=== PATIENT | female | born 1940 | race Caucasian/White ===

== ENCOUNTER 2020-05-28 09:56 | Outpatient (CLI) | payer MEDICARE, SELFPAY ==
--- NOTE | ~2020-05-28 | MM_ITS ---
EXAMINATION: MM screening nathalia BI w isac HISTORY: Screening TECHNIQUE: Craniocaudal and mediolateral oblique 3-D tomosynthesis images were obtained and synthetic 2-D images were generated. CAD analysis was submitted and interpreted. COMPARISON: Comparison to multiple prior studies sequentially, with oldest reviewed study dated 03/15. BREAST PARENCHYMAL COMPOSITION: There are scattered areas of fibroglandular density. FINDINGS: There is no evidence of suspicious mass, calcification, or architectural distortion to sugg est malignancy in either breast. There has been no suspicious interval change. IMPRESSION: 1. No mammographic evidence of malignancy. 2. Recommend routine screening mammography in one year. BI-RADS Category 1: Negative Reviewed, dictated and finalized at location A. TRICIAN APPRENTICE
== END 2020-05-28 09:57 | disposition home or self-care (01) ==
LOC: ANHIMG 10:01
PROVIDERS: PCP Family Medicine; Visit Provider Family Medicine
DX: Z12.31 Encounter for screening mammogram for malignant neoplasm of breast (principal)
CPT/HCPCS: 77063; 77067

== ENCOUNTER 2021-06-01 09:21 | Outpatient (CLI) | payer MEDICARE, SELFPAY ==
--- NOTE | ~2021-06-01 | MM_ITS ---
EXAMINATION: MM screening nathalia BI w isac HISTORY: Screening TECHNIQUE: Craniocaudal and mediolateral oblique 3-D tomosynthesis images were obtained and synthetic 2-D images were generated. CAD analysis was submitted and interpreted. COMPARISON: Comparison to multiple prior studies sequentially, with oldest reviewed study dated 03/15. BREAST PARENCHYMAL COMPOSITION: There are scattered areas of fibroglandular density. FINDINGS: There is no evidence of suspicious mass, calcification, or architectural distortion to sugg est malignancy in either breast. There has been no suspicious interval change. IMPRESSION: 1. No mammographic evidence of malignancy. 2. Recommend routine screening mammography in one year. BI-RADS Category 1: Negative Reviewed, dictated and finalized at location A. SPACE PRODUCTS SALES ENGINEER
== END 2021-06-01 09:22 | disposition home or self-care (01) ==
LOC: ANHIMG 09:24
PROVIDERS: PCP Family Medicine; Visit Provider Family Medicine
DX: Z12.31 Encounter for screening mammogram for malignant neoplasm of breast (principal)
CPT/HCPCS: 77063; 77067

== ENCOUNTER 2021-07-06 13:44 | Outpatient (CLI) | payer MEDICARE, SELFPAY ==
--- NOTE | ~2021-07-06 | CT_ITS ---
EXAMINATION: CT abdomen pelvis wo/w con DATE: 07/06/2021 14:55 INDICATION: Hematuria. TECHNIQUE: Computed tomography (CT) of the abdomen and pelvis was performed without and with intraven ous contrast using a total of 130 mL Omnipaque-350 intravenous contrast with a double-bolus technique for simultaneous opacification of the renal parenchyma and renal collecting system. Automated exposu re control and iterative reconstruction technique were employed. The dose-length product was 777.92 m Gy-cm. COMPARISON: None FINDINGS: The visualized portions of the lung bases demonstrate mild atelectasis. No pleural effusion. Cardiome alicja is noted. No pericardial effusion. The liver, spleen, gallbladder, pancreas, adrenal glands, and right kidney are normal. There is a 4 mm cyst in left kidney. There is no urolithiasis. The ureters are well opacified and are normal. There is a urachal remnant in the anterior bladder. Pelvic floor r elaxation is noted. There is diverticulosis of the colon without evidence of diverticulitis. The appe ndix is normal. There are no dilated loops of bowel. There is a small sliding hiatal hernia. There ar e no pathologically enlarged lymph nodes. There is no free intraperitoneal fluid. There is mild thora columbar spondylosis. IMPRESSION: 1. No etiology for hematuria. 2. Pelvic floor relaxation. 3. Small sliding hiatal hernia. Reviewed, dictated and finalized at location A. OLOGY SUPERVISOR
--- NOTE | ~2021-07-06 | XR_ITS ---
EXAMINATION: XR abdomen/kub 1V DATE: 07/06/2021 14:18 INDICATION: Hematuria. TECHNIQUE: A supine view of the abdomen on 2 radiographs was obtained. COMPARISON: CT abdomen and pelvis 07/06/2021 FINDINGS: There are no dilated loops of bowel. There are phleboliths in the pelvis. IMPRESSION: 1. No urolithiasis. Reviewed, dictated and finalized at location A. MATION CONSULTANT IMPRESSION: 1. No urolithiasis.
[2021-07-07 11:10] LABS: Estimated Glomerular Filt Rate > 60
== END 2021-07-06 13:45 | disposition home or self-care (01) ==
PROVIDERS: PCP Family Medicine; Visit Provider Nurse Practitioner Adult Health
DX: R31.9 Hematuria, unspecified (principal); K44.9 Diaphragmatic hernia without obstruction or gangrene
CPT/HCPCS: 74018; 74178; Q9967

== ENCOUNTER 2022-06-05 08:35 | Outpatient (CLI) | payer MEDICARE, SELFPAY ==
--- NOTE | ~2022-06-05 | MM_ITS ---
EXAMINATION: MM screening nathalia BI w isac HISTORY: Screening mammogram TECHNIQUE: Craniocaudal and mediolateral oblique 3-D tomosynthesis images were obtained and synthetic 2-D images were generated. CAD analysis was submitted and interpreted. COMPARISON: 06/02/19942021, 05/28/2020, 04/26/2019 bilateral screening mammogram examinations BREAST PARENCHYMAL COMPOSITION: There are scattered areas of fibroglandular density. FINDINGS: There is no evidence of suspicious mass, calcification, or architectural distortion to sugg est malignancy in either breast. There has been no suspicious interval change. IMPRESSION: 1. No mammographic evidence of malignancy. 2. Recommend routine screening mammography in one year. BI-RADS Category 1: Negative Reviewed, dictated and finalized at location C. LINER
--- NOTE | ~2022-06-05 | DEXA_ITS ---
Bone Density Report Name: JACKIE GARZA Age: 81 Sex: Female Ethnicity: White Date of : 1940 Indication: postmenopausal; screening for osteoporosis; prior fracture; hysterectomy; Referring Provider: PAVEL DIAS Study: Bone densitometry was performed. Exam Date: June 05, 2022 Accession number: [id number] Bone Density: Region BMD T-score Z-score Classification AP Spine(L1-L4) 0.836 -1.9 0.8 Osteopenia Femoral Neck (Left) 0.549 -2.7 -0.4 Osteoporosis Total Hip (Left) 0.695 -2.0 0.1 Osteopenia Femoral Neck (Right) 0.543 -2.8 -0.4 Osteoporosis Total Hip (Right) 0.661 -2.3 -0.2 Osteopenia Total Hip Mean 0.678 -2.2 -0.1 Osteopenia World Health Organization criteria for BMD impression classify patients as: Normal (T-score at or above -1.0), Osteopenia (T-score between -1.0 and -2.5), or Osteoporosis (T-score at or below -2.5). 10-year Fracture Risk: FRAX not reported because: Some T-score for Spine Total or Hip Total or Femoral Neck at or below -2.5 Clinical Information Provided by Patient: Has had a low trauma fracture Has used the following medications: Calcium Has the following medical conditions: Hysterectomy Patient maximum height was 65 Menopause Age: 49 Does not regularly consume dairy products Onset of menses at age 13 Number of children 2 Impression: The patient has established osteoporosis, based on the Right Femoral Neck T-score and the existence of a prior fracture. The patient has risk factors, including: previous fracture. Discussion: HIGH RISK OF FRACTURE. BONE DENSITY IS UNDESIRABLY LOW AT ONE OR MORE SKELETAL SITES, CONSISTENT WITH POSTMENOPAUSAL OSTEOPOROSIS. This patient's lowest T-score, in a patient who has previously fractured, meets the World Health Organization's (WHO) criteria for severe osteoporosis. In untreated patients, the risk of osteoporotic fracture increases approximately two-fold for each 1.0 SD decrease in T-score. Low bone density is not the only risk factor for fracture; also consider factors such as patient's age, frailty or poor health, risk of falling, risk of injury, previous osteoporotic fracture, family history of osteoporosis, cigarette smoking, low body weight, etc. Not everyone with low bone mineral density has osteoporosis; osteomalacia and other metabolic bone disorders should also be considered. Patients who have osteoporosis should be evaluated for specific diseases and conditions (secondary causes) that may cause or contribute to bone loss. The [place] Association of Clinical Endocrinologists (AACE) and National Osteoporosis Foundation (NOF) recommend pharmacologic intervention for all postmenopausal women whose T-score is in this range. The patient should follow a healthful lifestyle (good nutrition with adequate calcium and vitamin D,
== END 2022-06-05 08:36 | disposition home or self-care (01) ==
LOC: ANHIMG 08:41
PROVIDERS: PCP Family Medicine; Visit Provider Nurse Practitioner
DX: Z12.31 Encounter for screening mammogram for malignant neoplasm of breast (principal); M81.0 Age-related osteoporosis without current pathological fracture; M85.88 Other specified disorders of bone density and structure, other site; M85.852 Other specified disorders of bone density and structure, left thigh; M85.851 Other specified disorders of bone density and structure, right thigh
CPT/HCPCS: 77063; 77067; 77080

== ENCOUNTER 2022-07-18 08:09 | Outpatient (CLI) | payer MEDICARE, SELFPAY ==
[2022-07-18 19:25] LABS: Vitamin D 25 Hydroxy 52.8 ng/mL
[2022-07-18 19:53] LABS: Hemoglobin A1C 5.9 % (<5.7)
[2022-07-18 20:30] LABS: Alanine Aminotransferase 17 U/L (6-35); Albumin Level 4.3 g/dL (3.5-5.1); Alkaline Phosphatase 101 U/L (38-126); Anion Gap 3 mmol/L (8-16); Aspartate Amino Transferase 50 U/L (14-36); Blood Urea Nitrogen 12 mg/dL (7-17); Calcium 9.1 mg/dL (8.4-10.2); Carbon Dioxide 32 mmol/L (22-30); Chloride 105 mmol/L (98-107); Cholesterol 178 mg/dL (0-200); Estimated Glomerular Filt Rate > 60; Glucose 83 mg/dL (65-110); HDL Direct 58 mg/dL; Potassium 4.3 mmol/L (3.4-5.0); Sodium 140 mmol/L (137-145); Triglycerides 113 mg/dL (<150)
[2022-07-18 20:44] LABS: LDL Cholesterol Direct 84 mg/dL
== END 2022-07-18 08:10 | disposition home or self-care (01) ==
LOC: ANHGOSHLAB 08:11
PROVIDERS: PCP Family Medicine; Visit Provider Family Medicine
DX: E78.00 Pure hypercholesterolemia, unspecified (principal); R73.03 Prediabetes; F32.9 Major depressive disorder, single episode, unspecified; Z13.21 Encounter for screening for nutritional disorder; E55.9 Vitamin D deficiency, unspecified
CPT/HCPCS: 36415; 80053; 80061; 82306; 83036; 84443

== ENCOUNTER 2022-11-21 09:34 | Outpatient (CLI) | payer MEDICARE, SELFPAY ==
[2022-11-21 14:44] LABS: Kit Draw Collected
== END 2022-11-21 09:35 | disposition home or self-care (01) ==
LOC: ANHGOSHLAB 09:35
PROVIDERS: PCP Family Medicine; Visit Provider Family Medicine
DX: R73.03 Prediabetes (principal); E78.00 Pure hypercholesterolemia, unspecified; I10 Essential (primary) hypertension
CPT/HCPCS: 36415

== ENCOUNTER 2023-01-31 08:06 | Outpatient (CLI) | payer MEDICARE, SELFPAY ==
[2023-01-31 11:43] LABS: Alanine Aminotransferase 15 U/L (6-35); Albumin Level 4.1 g/dL (3.5-5.1); Alkaline Phosphatase 91 U/L (38-126); Anion Gap 1 mmol/L (8-16); Aspartate Amino Transferase 57 U/L (14-36); Blood Urea Nitrogen 21 mg/dL (7-17); Calcium 9.1 mg/dL (8.4-10.2); Carbon Dioxide 34 mmol/L (22-30); Chloride 104 mmol/L (98-107); Cholesterol 164 mg/dL (0-200); Estimated Glomerular Filt Rate > 60; Glucose 104 mg/dL (65-110); HDL Direct 54 mg/dL; Potassium 4.6 mmol/L (3.4-5.0); Sodium 139 mmol/L (137-145); Triglycerides 99 mg/dL (<150)
[2023-01-31 11:53] LABS: LDL Cholesterol Direct 76 mg/dL
[2023-01-31 13:16] LABS: Hemoglobin A1C 5.8 % (<5.7)
== END 2023-01-31 08:07 | disposition home or self-care (01) ==
PROVIDERS: PCP Family Medicine; Visit Provider Family Medicine
DX: R73.03 Prediabetes (principal); E78.00 Pure hypercholesterolemia, unspecified; I10 Essential (primary) hypertension
CPT/HCPCS: 36415; 80053; 80061; 83036

== ENCOUNTER 2023-06-06 09:16 | Outpatient (CLI) | payer MEDICARE, SELFPAY ==
[2023-06-06 15:10] LABS: Alanine Aminotransferase 16 U/L (6-35); Albumin Level 4.3 g/dL (3.5-5.1); Alkaline Phosphatase 94 U/L (38-126); Anion Gap 6 mmol/L (8-16); Aspartate Amino Transferase 52 U/L (14-36); Blood Urea Nitrogen 22 mg/dL (7-17); Calcium 9.3 mg/dL (8.4-10.2); Carbon Dioxide 31 mmol/L (22-30); Chloride 104 mmol/L (98-107); Cholesterol 164 mg/dL (0-200); Estimated Glomerular Filt Rate > 60; Glucose 113 mg/dL (65-110); HDL Direct 57 mg/dL; Potassium 4.3 mmol/L (3.4-5.0); Sodium 141 mmol/L (137-145); Triglycerides 72 mg/dL (<150)
[2023-06-06 15:17] LABS: Vitamin D 25 Hydroxy 65.9 ng/mL
[2023-06-06 15:21] LABS: LDL Cholesterol Direct 81 mg/dL
[2023-06-06 20:55] LABS: Hemoglobin A1C 6.1 % (<5.7)
== END 2023-06-06 09:17 | disposition home or self-care (01) ==
LOC: ANHGOSHLAB 09:19
PROVIDERS: PCP Family Medicine; Visit Provider Family Medicine
DX: R73.03 Prediabetes (principal); E78.00 Pure hypercholesterolemia, unspecified; I10 Essential (primary) hypertension; E55.9 Vitamin D deficiency, unspecified
CPT/HCPCS: 36415; 80053; 80061; 82306; 83036

== ENCOUNTER 2023-06-07 14:49 | Outpatient (CLI) | payer MEDICARE, SELFPAY ==
--- NOTE | ~2023-06-07 | MM_ITS ---
EXAMINATION: MM screening nathalia BI w isac HISTORY: Screening mammogram TECHNIQUE: Craniocaudal and mediolateral oblique 3-D tomosynthesis images were obtained and synthetic 2-D images were generated. CAD analysis was submitted and interpreted. COMPARISON: 06/05/2022, 06/01/2021, 05/28/2020 BREAST PARENCHYMAL COMPOSITION: There are scattered areas of fibroglandular density. FINDINGS: No suspicious mass, calcification, or architectural distortion are identified in either akilah ast to suggest malignancy. There has been no suspicious interval change. IMPRESSION: 1. No mammographic evidence of malignancy. 2. Recommend routine screening mammography while the patient remains in good health. BI-RADS Category 1: Negative Reviewed, dictated and finalized at location A. ITION AIDES TEACHER IMPRESSION: 1. No mammographic evidence of malignancy. 2. Recommend routine screening mammography while the patient remains in good he alth. BI-RADS Category 1: Negative
== END 2023-06-07 14:50 | disposition home or self-care (01) ==
LOC: ANHIMG 14:57
PROVIDERS: PCP Family Medicine; Visit Provider Nurse Practitioner
DX: Z12.31 Encounter for screening mammogram for malignant neoplasm of breast (principal)
CPT/HCPCS: 77063; 77067

== ENCOUNTER 2023-09-19 08:09 | Outpatient (CLI) | payer MEDICARE, SELFPAY ==
[2023-09-19 21:05] LABS: Alanine Aminotransferase 14 U/L (6-35); Albumin Level 4.4 g/dL (3.5-5.1); Alkaline Phosphatase 94 U/L (38-126); Anion Gap 6 mmol/L (4-12); Aspartate Amino Transferase 35 U/L (14-36); Bilirubin,Total 1.1 mg/dL (0.2-1.3); Blood Urea Nitrogen 22 mg/dL (7-17); Calcium 9.6 mg/dL (8.4-10.2); Carbon Dioxide 29 mmol/L (22-30); Chloride 107 mmol/L (98-107); Cholesterol 157 mg/dL (0-200); Estimated Glomerular Filt Rate > 60; Glucose 95 mg/dL (65-110); HDL Direct 55 mg/dL; Sodium 142 mmol/L (137-145); Triglycerides 82 mg/dL (<150)
[2023-09-19 21:16] LABS: LDL Cholesterol Direct 80 mg/dL
[2023-09-19 22:07] LABS: Hemoglobin A1C 5.7 % (<5.7)
== END 2023-09-19 08:10 | disposition home or self-care (01) ==
LOC: ANHGOSHLAB 08:10
PROVIDERS: PCP Family Medicine; Visit Provider Nurse Practitioner
DX: E78.00 Pure hypercholesterolemia, unspecified (principal); R73.03 Prediabetes
CPT/HCPCS: 36415; 80053; 80061; 83036

== ENCOUNTER 2023-10-25 14:45 | Outpatient (CLI) | payer MEDICARE, SELFPAY ==
[2023-10-25 15:45] LABS: Alanine Aminotransferase 14 U/L (6-35); Aspartate Amino Transferase 66 U/L (14-36)
== END 2023-10-25 14:46 | disposition home or self-care (01) ==
LOC: ANHLAB 14:47
PROVIDERS: PCP Family Medicine; Visit Provider Podiatrist Foot & Ankle Surgery
DX: B35.1 Tinea unguium (principal)
CPT/HCPCS: 36415; 84450; 84460

== ENCOUNTER 2024-02-04 08:31 | Outpatient (CLI) | payer MEDICARE, SELFPAY ==
[2024-02-04 14:49] LABS: Hematocrit 43.2 % (37.0-47.0); Hemoglobin 13.3 g/dL (12.0-15.0); Mean Corpuscular HGB Conc 30.8 g/dl (32-36); Mean Corpuscular Hemoglobin 29.6 pg (26-34); Mean Corpuscular Volume 96.2 fl (80-100); Mean Platelet Volume 10.3 fl (7.4-10.4); Platelet Count Result 227 k/mm3 (150-375); Red Blood Count 4.49 M/mm3 (4.2-5.4); Red Cell Distribution Width 13.1 % (11.5-14.5); White Blood Count 5.3 K/mm3 (4.5-10.0)
[2024-02-04 15:07] LABS: Alanine Aminotransferase 12 U/L (6-35); Albumin Level 4.4 g/dL (3.5-5.1); Alkaline Phosphatase 94 U/L (38-126); Anion Gap 8 mmol/L (4-12); Aspartate Amino Transferase 46 U/L (14-36); Bilirubin,Total 0.9 mg/dL (0.2-1.3); Blood Urea Nitrogen 24 mg/dL (7-17); Calcium 9.2 mg/dL (8.4-10.2); Carbon Dioxide 31 mmol/L (22-30); Chloride 99 mmol/L (98-107); Cholesterol 167 mg/dL (0-200); Estimated Glomerular Filt Rate > 60; Glucose 85 mg/dL (65-110); HDL Direct 63 mg/dL; Sodium 138 mmol/L (137-145); Triglycerides 89 mg/dL (<150)
[2024-02-04 15:08] LABS: Alanine Aminotransferase 12 U/L (6-35); Aspartate Amino Transferase 54 U/L (14-36)
[2024-02-04 15:12] LABS: LDL Cholesterol Direct 70 mg/dL
[2024-02-04 15:24] LABS: Hemoglobin A1C 6.2 % (<5.7)
[2024-02-04 15:27] LABS: Thyroid Stimulating Hormone 0.895 uIU/mL (0.465-4.680)
== END 2024-02-04 08:32 | disposition home or self-care (01) ==
PROVIDERS: Podiatrist Foot & Ankle Surgery; PCP Family Medicine; Visit Provider Nurse Practitioner
DX: E55.9 Vitamin D deficiency, unspecified (principal); E78.5 Hyperlipidemia, unspecified; R73.03 Prediabetes
CPT/HCPCS: 36415; 80053; 80061; 82306; 83036; 84443; 84450; 84460; 85027

== ENCOUNTER 2024-07-28 09:40 | Outpatient (CLI) | payer MEDICARE, SELFPAY ==
--- OUTSIDE RECORDS SUMMARY | 2024-07-28 10:46 | XMS_ITS | Encounter Summary ---
Author Organization [facility] Address 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
--- OUTSIDE RECORDS SUMMARY | 2024-07-28 10:46 | XMS_ITS | Encounter Summary ---
Author Organization [facility] Address [address] [place] [address] Care Team Providers Care Bridge Inspector Name Role Phone Unavailable Primary Care Provider Unavailabl e Encounter Details Date Type Department Care Team (Late st Contact Info) Description 10/17/[address] 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
--- OUTSIDE RECORDS SUMMARY | 2024-07-28 10:46 | XMS_ITS | Encounter Summary ---
Author Organization [facility] Address 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
--- OUTSIDE RECORDS SUMMARY | 2024-07-28 10:46 | XMS_ITS | Clinical Summary ---
Author Organization [facility] Address [address] 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
--- OUTSIDE RECORDS SUMMARY | 2024-07-28 10:46 | XMS_ITS | Continuity of Care Document ---
Author Organization [facility] Address [address] [place] [address] [place] [address] Phone Care Team Providers Care Ladle Repairman Name Role Phone German Desai Unavailable Unavailable [...] Diagnoses Date Provider Providers Copied on Encounter [facility], [address] [place] [address] [address], [place], [place], [address], tel:[phone] SEC [facility] No Information 8 Lloyd Porter. [address] , [address], [place], [place], [facility], [place]. tel:[phone] [facility], [address] [place] [address] [address], [place], [place], [address], [place] tel:[phone] SEC [facility] No Information 200 8 Lloyd Porter. [address], [place], [address], [place]. tel:[phone] [facility], [address] [place] [address] [address], [place], [place], [address], [place] tel:[phone] [facility] No Information Jose-1 0-200 8 Doisy Edward. [address], [place], [address], [place]. tel:[phone] Office/outpati ent Visit, Est [facility], [address], [place], [place], [address], [place] tel:[phone] SEC [facility] No Information May-2 2-200 8 Doisy Ed[address]. [address], [place], [address], [place]. tel:[phone] [facility], [address], [place], [place], [address], [place] tel:[phone] SEC [facility] No Information Apr-1 3-200 7 Doisy [address]. [address], [place], [address], [place]. tel:[phone] [facility], [address], [place], [place], [address], [place] tel:[phone] SEC [facility] No Information Mar-3 0-200 7 Doisy [address]. [address], [place], [address], [place]. tel:[phone] [facility], [address], [place], [place], [address], [place] tel:[phone] [facility] No Information Mar-2 9-200 7 Doisy [address]. [address], [place], [address], [place]. tel:[phone] Office Consultation [facility], [address], [place], [place], [address], [place] tel:[phone] SEC [facility] No Information Jul- 3-200 7 Dennysalli Portre. [address] [facility] , [address], [place], [address], [place]. tel:[phone] Family History Family Member Type Diagnosis Age [...]
--- OUTSIDE RECORDS SUMMARY | 2024-07-28 10:46 | XMS_ITS | Encounter Summary ---
Author Organization [facility] Address 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
--- OUTSIDE RECORDS SUMMARY | 2024-07-28 10:46 | XMS_ITS | Referral Summary ---
Author Organization [facility] Address [address] [place] [address] Care Team Providers Care Assembly Line Driver Name Role Phone Watson Bowser MD Unavailable Unavailable Source Comments [facility],non-owned Affiliates and Associated Physician Practices is amultiple site organization consisting of ambulatory clinics and hospital sitesin [place], [place], [place] and [place]. This disclosure is being madepursuant to the Care Everywhere program and may not contain all information available regarding this patient. Last updated 18.[facility] Allergies No known active allergies Medications * Be aware that medications may not be up to date on this document. Alwaysverify current medications with the patient. Medication Sig Dispensed Refills Start Date End Date Status CALCIUM + D PO Take by mouth. Active FIORICET 50-325-40 MG TABS Take 1 Tab by mouth 2 times daily as needed for Headache. Active ferrous sulfate 325 (65 FE) MG tablet Take 325 mg by mouth daily. Active eletriptan (RELPAX) 40 MG tablet Take 1 Tab by mouth once as needed for Migraine for 1 dose. 6 Tab 5 08/24/2010 Active ranitidine (ZANTAC) 300 MG tablet Take 1 Tab by mouth once daily. 90 Tab 2 04/23/2012 Active nadolol (CORGARD) 80 MG tablet TAKE ONE-HALF (1/2) TABLET DAILY 90 Tab 3 09/22/2012 Active predniSONE (DELTASONE) 20 MG tablet 3 for 3 days, then 2 for 3 days, then 1 daily. 18 Tab 0 11/21/2012 Active fluocinonide (LIDEX) 0.05 % cream Apply to affected area 2 times daily. *DO NOT USE ON FACE* 60 g 0 11/21/2012 Active Active Problems Problem Noted Date Diagnosed Date Iron deficiency anemia 04/27/2010 Screen for Colon Cancer rec' d and refused 01/26/2006, 11/23/2008 11/23/2008 Overview (05/03/2010): FOBT neg 04/2010 Essential hypertension 11/23/2008 Overview (02/11/2015): Migraine without aura 07/17/2008 Overview (02/11/2015): Osteoporosis 07/17/2008 BD 05/17/2007 neck -2.6, spine -1.8 07/17/2008 GERD (gastroesophageal reflux disease) 9 Chronic Laryngitis due to reflux 07/17/2008 Abd US 05/17/2007 no AAA 07/17/2008 Blood donor, platelets 07/17/2008 Immunizations Name Administration Dates Next Due INFLUENZA VACCINE 02/22/2012,02/22/2011,02/25/20 10,03/15/2009,04/13/2008 PNEUMOCOCCAL PPSV23 04/13/2007 ZOSTER VACCINE, LIVE 04/13/2007 Social History Tobacco Use Types Packs/Day Years Used Date Smoking Tobacco: Never Smokeless Tobacco: Never Tobacco Cessation:Counseling Given: No Alcohol Use Standard Drinks/Week Comments No 0 (1 standard drink = 0.6 oz pur e alcohol) Sex and Gender Information Value Date Recorded Sex Assigned at Not on file Gender Identity Not on file Sexual Orientation Not on file Last Filed Vital Signs Vital Sign Reading Time Taken Comments Blood Pressure 124/94 09/18/2012 9:09 AM CDT Pulse 72 09/18/2012 9:09 AM CDT Temperature 36.4 C (97.6 F) 11/23/2009 10:18 AM CDT Respiratory Rate 12 09/18/2012 9:09 AM CDT Oxygen Saturation - - Inhaled Oxygen Concentration - - Weight 57.6 kg (127 lb) 09/18/2012 11:10 AM CDT Height 164.5 cm (5' 4.75 ) 09/18/2012 11:10 AM C DT Body Mass Index 21.3 09/18/2012 11:10 AM CDT Plan of Treatment Not on file Procedures Procedure Name Priority Date/Time Associated Diagnosis Comments DEXA BONE DENSITY AXIAL SKELETON Routine 09/18/2012 7:06 PM CDT Osteoporosis from Last 3 Months or Most Recently Relevant to Health Maintenance Results * DEXA BONE DENSITY AXIAL SKELETON (09/18/2012 7:06 PM CDT) Anatomical Region Laterality Modality Other Narrative 09/18/2012 7:06 PM CDT Devendra Upton MD 09/18/2012 7:06 PM [facility] BONE DENSITY REPORT Pt. Name: Malgorzata Mandel Gender: female : 1940 Test Date: 09/18/2012 Referring Physician: Krishan Silva III, MD Technologist: RONY Lockhart A Central DXA was performed today using a [employer] Discovery C counseling aide. The images and data have been scanned. Images are of good technical quality. Areas studied: Spine -2.2; Lt. Hip -1.8; Rt. Hip -1.8; Lt. Fem Nec -2.2; Rt.Fem Nec -2.5; (with site T scores) Official T-score: --> -2.5 Interpretation: Osteoporosis* Comments: Osteoporosis may be diagnosed in postmenopausal women and in men age 50 and older if the T-score of the lumbar spine, total hip or femoral neck is -2.5 or less. In certain circumstances the 33% radius may be utilized. A fragility fracture, regardless of T-score, should be considered diagnostic of osteoporosis (provided other causes of the fracture have been excluded). Recommendations: In general postmenopausal women should have a daily intake of 1000 mg of calcium a day, and 800 IU of Vitamin D a day. A decision about when to add prescription therapy requires clinical correlation and may vary for any given individual patient. Fracture risk approximately doubles for every 1 SD decrease in BMD. The 2008 NOF suggests postmenopausal women and men age 50 and older presenting with the following should be considered for treatment: 1) A hip or vertebral (clinical or morphometric) fracture 2) Other prior fractures and low bone mass (T-score between -1 and -2.5 at the femoral neck, total hip or spine) 3) T-score < -2.5 at the femoral neck, total hip or spine after appropriate evaluation to exclude secondary causes 4) Low bone mass (T-score between -1.0 and -2.5 at the femoral neck, total hip or spine) and secondary causes associated with high risk of fracture (such as glucocorticoid use or total immobilization) 5) Low bone mass (T-score between -1.0 and -2.5 at the femoral neck, total hip or spine) and 10 year probability of hip fracture > 3% or a 10 year probability of any major osteoporosis-related fracture > 20% based on the [place] adapted WHO algorithm (available at www.shef.ac.uk/FRAX) Devendra Upton MD 09/18/2012 7:05 PM Devendra Upton MD Physician and Certified Clinical Training Developer Procedure Note Shirley Biggs - 09/18/2012 11:12 AM CDT [facility] BONE DENSITY REPORT Pt. Name: Malgorzata Mandel Gender: female : 1940 Test Date: 09/18/2012 Referring Physician: Krishan Silva III, MD Technologist: RONY Lockhart A Central DXA was performed today using a [employer] QDR Discovery C counseling aide.The images and data have been scanned. Images are of good technicalquality. Areas studied: Spine -2.2; Lt. Hip -1.8; Rt. Hip-1.8; Lt. Fem Nec -2.2; Rt.Fem Nec -2.5; (with site T scores) Official T-score: --> -2.5 Interpretation: Osteoporosis* Comments: Osteoporosis may be diagnosed in postmenopausal women and in men age 50and older if the T-score of the lumbar spine, total hip or femoral neck is-2.5 or less. In certain circumstances the 33% radius may be utilized. Afragility fracture, regardless of T-score, should be considered diagnosticof osteoporosis (provided other causes of the fracture have beenexcluded). Recommendations: In general postmenopausal women should have a dailyintake of 1000 mg of calcium a day, and 800 IU of Vitamin D a day. Adecision about when to add prescription therapy requires clinicalcorrelation and may vary for any given individual patient. Fracture riskapproximately doubles for every 1 SD decrease in BMD. The 2008 NOFsuggests postmenopausal women and men age 50 and older presenting with thefollowing should be considered for treatment: 1) A hip or vertebral (clinical or morphometric) fracture 2) Other prior fractures and low bone mass (T-score between -1 and -2.5 atthe femoral neck, total hip or spine) 3) T-score < -2.5 at the femoral neck, total hip or spine afterappropriate evaluation to exclude secondary causes 4) Low bone mass (T-score between -1.0 and -2.5 at the femoral neck,total hip or spine) and secondary causes associated with high risk offracture (such as glucocorticoid use or total immobilization) 5) Low bone mass (T-score between -1.0 and -2.5 at the femoral neck, totalhip or spine) and 10 year probability of hip fracture > 3% or a 10 yearprobability of any major osteoporosis-related fracture > 20% based on theU.S. 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
--- OUTSIDE RECORDS SUMMARY | 2024-07-28 10:47 | XMS_ITS | Patient Health Summary ---
Author Organization [facility] Address [address] [place] [address] Care Team Providers Care Probation Worker Name Role Phone Watson Bowser MD Unavailable Unavailable Note from [facility],non-owned Affiliates and Associated Physician Practices is amultiple site organization consisting of ambulatory clinics and hospital sitesin [place], [place], [place] and [place]. This disclosure is being madepursuant to the Care Everywhere program and may not contain all information available regarding this patient. Last updated 18.[facility] Allergies No known active allergies Medications * Be aware that medications may not be up to date on this document. Alwaysverify current medications with the patient. * CALCIUM + D PO Take by mouth. * FIORICET 50-325-40 MG TABS Take 1 Tab by mouth 2 times daily as needed for Headache. * ferrous sulfate 325 (65 FE) MG tablet Take 325 mg by mouth daily. * eletriptan (RELPAX) 40 MG tablet(Started 08/24/2010) Take 1 Tab by mouth once as needed for Migraine for 1 dose. 5 refills left * ranitidine (ZANTAC) 300 MG tablet(Started 04/23/2012) Take 1 Tab by mouth once daily. 2 refills left * nadolol (CORGARD) 80 MG tablet(Started 09/22/2012) TAKE ONE-HALF (1/2) TABLET DAILY 3 refills left * predniSONE (DELTASONE) 20 MG tablet(Started 11/21/2012) 3 for 3 days, then 2 for 3 days, then 1 daily. * fluocinonide (LIDEX) 0.05 % cream(Started 11/21/2012) Apply to affected area 2 times daily. *DO NOT USE ON FACE* Active Problems Problem Noted Date Diagnosed Date Iron deficiency anemia 04/27/2010 Screen for Colon Cancer rec' d and refused 01/26/2006, 11/23/2008 11/23/2008 Essential hypertension 11/23/2008 Migraine without aura 07/17/2008 Osteoporosis 07/17/2008 BD 05/17/2007 neck -2.6, spine -1.8 07/17/2008 GERD (gastroesophageal reflux disease) 9 Chronic Laryngitis due to reflux 07/17/2008 Abd US 05/17/2007 no AAA 07/17/2008 Blood donor, platelets 07/17/2008 Immunizations * INFLUENZA VACCINE(Given 02/22/2012, 02/22/2011, 02/24/2010, 03/15/2009, 04/13/2008) * PNEUMOCOCCAL PPSV23(Given 04/13/2007) * ZOSTER VACCINE, LIVE(Given 04/13/2007) Social History Tobacco Use Types Packs/Day Years [...] Mass Index 21.3 09/18/2012 11:10 AM CDT Procedures * OCCULT BLOOD FECES 1-3 IMMUNO - POINT OF CARE (AMB)(Performed 10/28/2012) Performed for Screen for colon cancer * DEXA BONE DENSITY AXIAL SKELETON(Performed 09/18/2012) Performed for Osteoporosis * ALT(Performed 04/23/2012) Performed for Encounter for long-term (current) use of other medications * BASIC METABOLIC PANEL (CALCIUM TOTAL)(Performed 04/23/2012) Performed for Unspecified essential hypertension * CBC W AUTO DIFFERENTIAL(Performed 04/23/2012) Performed for Iron deficiency anemia * XR ANKLE LEFT 3VW OR MORE(Performed 04/05/2012) * XR FOOT RIGHT 3VW OR MORE(Performed 04/05/2012) * MAMMO BILAT SCREENING(Performed 02/15/2012) * OCCULT BLOOD FECES 1-3 SCREEN POINT OF CARE (AMB)(Performed 10/30/2011) Performed for Screen for colon cancer * BASIC METABOLIC PANEL (CALCIUM TOTAL)(Performed 04/25/2011) Performed for Unspecified essential hypertension * ALT(Performed 04/25/2011) Performed for Encounter for long-term (current) use of other medications * CBC W AUTO DIFFERENTIAL(Performed 04/25/2011) Performed for Anemia, unspecified * MAMMO BILAT SCREENING(Performed 02/13/2011) * OCCULT BLOOD FECES 1-3 SCREEN POINT OF CARE (AMB)(Performed 05/03/2010) Performed for Screen for colon cancer * FERRITIN(Performed 04/26/2010) Performed for Unspecified anemia * IRON + TIBC PANEL(Performed 04/26/2010) Performed for Unspecified anemia * VITAMIN B12 FOLATE PANEL(Performed 04/26/2010) Performed for Unspecified anemia * MAMMO BILAT SCREENING(Performed 02/11/2010) * ALT(Performed 12/17/2009) Performed for Encounter for Long-Term (Current) Use of Other Medications * LIPID PROFILE W LDL/HDL RATIO(Performed 12/17/2009) Performed for Mixed Hyperlipidemia * BASIC METABOLIC PANEL (CALCIUM TOTAL)(Performed 12/17/2009) Performed for Unspecified Essential Hypertension * VITAMIN D 25-HYDROXY(Performed 12/17/2009) Performed for Vitamin D Deficiency * CBC W AUTO DIFFERENTIAL(Performed 12/17/2009) Performed for Unspecified Anemia * ALT(Performed 05/01/2008) * BASIC METABOLIC PANEL (CALCIUM TOTAL)(Performed 05/01/2008) * CBC W AUTO DIFFERENTIAL(Performed 05/01/2008) * US AORTA(Performed 05/17/2007) Results * OCCULT BLOOD FECES 1-3 IMMUNO - POINT OF CARE (AMB) (10/28/2012 12:56 PM CDT) QC Verified Yes Occult Blood Immunoassay 1 negative Negative Occult Blood Immunoassay 2 negative Negative Occult Blood Immunoassay 3 negative Negative STOOL SPECIMEN / Unknown Krishan Silva III, MD LAB - POINT OF CAR E ORDERABLES * DEXA BONE DENSITY AXIAL SKELETON (09/18/2012 7:06 PM CDT) Anatomical Region Laterality Modality Other Narrative 09/18/2012 7:06 PM CDT Devendra Upton MD 09/18/2012 7:06 PM [facility] Medical group BONE DENSITY REPORT Pt. Name: Malgorzata Mandel Gender: female : 1940 Test Date: 09/18/2012 Referring Physician: Krishan Silva III, MD Technologist: RONY Lockhart A Central DXA was performed today using a [employer]its[employer] Discovery C hot plate plywood press operator. The images and data have been scanned. [...] Devendra Upton MD Physician and Certified Clinical Truck Driving Instructor Procedure Note Shirley Biggs - 09/18/2012 11:12 AM CDT [facility] group BONE DENSITY REPORT Pt. Name: Malgorzata Mandel Gender: female : 1940 Test Date: 09/18/2012 Referring Physician: Krishan Silva III, MD Technologist: RONY Lockhart A Central DXA was performed today using a [employer] QDR Discovery C hot plate plywood press operator.The images and data have been scanned. Images [...] Devendra Upton MD Physician and Certified Clinical Truck Driving Instructor Krishan Silva III, MD DEXA ORDERABLES * CBC W AUTO DIFFERENTIAL (04/23/2012 9:50 AM PHYSICAL DAMAGE APPRAISER) Only the most recent of4 resultswithin the time period is included. WBC 5.7 4.0 - 10.5 x10E3/uL [facility] INSURANCE BILL RBC 4.52 3.77 - 5.28 x10E6/uL [facility] INSURANCE BILL Hemoglobin 13.3 11.1 - 15.9 g/dL [facility] INSURANCE BILL Hematocrit 41.7 34.0 - 46.6 % [facility] INSURANCE BILL MCV 92 79 - 97 fL [facility] INSURANCE BILL MCH 29.4 26.6 - 33.0 pg [facility] INSURANCE BILL MCHC 31.9 31.5 - 35.7 g/dL [facility] INSURANCE BILL RDW 13.5 12.3 - 15.4 % [facility] INSURANCE BILL Platelet Count 223 140 - 415 x10E3/uL [facility] INSURANCE BILL Granulocytes % 54 40 - 74 % [facility] INSURANCE BILL Lymphocytes % 37 14 - 46 % [facility] INSURANCE BILL Monocytes % 7 4 - 13 % [facility] INSURANCE BILL Eosinophils % 2 0 - 7 % [facility] INSURANCE BILL Basophils % 0 0 - 3 % [facility] INSURANCE BILL Immature Cells NOT NEEDED [facility] INSURANCE BILL Comment:Ancillary determined the test is not needed Granulocytes Absolute 3.0 1.8 - 7.8 x10E3/uL [facility] INSURANCE BILL Lymphocytes Absolute 2.1 0.7 - 4.5 x10E3/uL [facility] INSURANCE BILL Monocytes Absolute 0.4 0.1 - 1.0 x10E3/uL [facility] INSURANCE BILL Eosinophils Absolute 0.1 0.0 - 0.4 x10E3/uL [facility] INSURANCE BILL Basophils Absolute 0.0 0.0 - 0.2 x10E3/uL [facility] INSURANCE BILL Immature Granulocytes 0 0 - 2 % [facility] INSURANCE BILL Immature Granulocytes Absolute 0.0 0.0 - 0.1 x10E3/uL [facility] INSURANCE BILL nRBC NOT NEEDED [facility] INSURANCE BILL Comment:Ancillary determined the test is not needed Comment Hematology NOT NEEDED [facility] INSURANCE BILL Comment:Ancillary determined the test is not needed Blood specimen (specimen) BLOOD SPECIMEN / Unknown 04/23/2012 9:50 AM PHYSICAL DAMAGE APPRAISER 04/23/2012 10:00 PM PHYSICAL DAMAGE APPRAISER Narrative Resulting Agency Comment [facility] [address] [phone] Krishan Silva III, MD LAB - HEMATOLOGY O RDERABLES [facility] INSURANCE BILL * BASIC METABOLIC PANEL (CALCIUM TOTAL) (04/23/2012 9:50 AM PHYSICAL DAMAGE APPRAISER) Only the most recent of4 resultswithin the time period is included. Glucose 94 65 - 99 mg/dL [facility] INSURANCE BILL BUN 13 8 - 27 mg/dL [facility] INSURANCE BILL Creatinine 0.61 0.57 - 1.00 mg/dL [facility] INSURANCE BILL eGFR by MDRD 92 >59 mL/min/1.7 3 [facility] INSURANCE BILL eGFR by MDRD 106 >59 mL/min/1.7 3 [facility] INSURANCE BILL BUN/Creatinine Ratio 21 - [facility] INSURANCE BILL Sodium 141 134 - 144 mmol/L [facility] INSURANCE BILL Potassium 4.3 3.5 - 5.2 mmol/L [facility] INSURANCE BILL Chloride 104 97 - 108 mmol/L [facility] INSURANCE BILL CO2 25 20 - 32 mmol/L [facility] INSURANCE BILL Calcium 9.2 8.6 - 10.2 mg/dL [facility] INSURANCE BILL Blood specimen (specimen) BLOOD SPECIMEN / Unknown 04/23/2012 9:50 AM PHYSICAL DAMAGE APPRAISER 04/23/2012 10:00 PM PHYSICAL DAMAGE APPRAISER Narrative Resulting Agency Comment [facility] [address] [phone] Krishan Silva III, MD LAB - CHEMISTRY OR DERABLES Performing Organization Address City/[facility] Co de Phone Number [facility] INSURANCE BILL * ALT (04/23/2012 9:50 AM PHYSICAL DAMAGE APPRAISER) Only the most recent of4 resultswithin the time period is included. ALT 8 0 - 32 IU/L [facility] INSURANCE BILL Blood specimen (specimen) BLOOD SPECIMEN / Unknown 04/23/2012 9:50 AM PHYSICAL DAMAGE APPRAISER 04/23/2012 10:00 PM PHYSICAL DAMAGE APPRAISER Narrative Resulting Agency Comment [facility] [address] [phone] Krishan Silva III, MD LAB - CHEMISTRY OR DERABLES Performing Organization Address [facility] de Phone Number [facility] INSURANCE BILL * XR FOOT 3+ VW RIGHT (04/05/2012) Anatomical Region Laterality Modality Ankle / Foot Other Krishan Silva III, MD DIAGNOSTIC IMAGING ORDERABLES * XR ANKLE 3+ VW LEFT (04/05/2012) Anatomical Region Laterality Modality Lower Extremity Other Krishan Silva III, MD DIAGNOSTIC IMAGING ORDERABLES * MAMMO SCREENING DIGITAL IMAGE BILAT (02/15/2012) Only the most recent of3 resultswithin the time period is included. Anatomical Region Laterality Modality Breast Bilateral Other Krishan Silva III, MD MAMMO ORDERABLES * OCCULT BLOOD FECES 1-3 SCREEN POINT OF CARE (AMB) (10/30/2011 1:55 PM CDT) Only the most recent of2 resultswithin the time period is included. Occult Blood 1 negative Negative Occult Blood 2 negative Negative Occult Blood 3 negative Negative Card Lot Number Card Exp Date Yes Developer Lot Number Developer Expiration Date Yes QC Negative Negative QC Positive STOOL SPECIMEN / Unknown 10/30/2011 1:55 PM CDT Krishan Silva III, MD LAB - POINT OF CAR E ORDERABLES * IRON + TIBC PANEL (04/26/2010 3:49 PM PHYSICAL DAMAGE APPRAISER) TIBC 392 250 - 450 ug/dL [facility] INSURANCE BILL UIBC 329 150 - 375 ug/dL [facility] INSURANCE BILL Iron 63 35 - 155 ug/dL [facility] INSURANCE BILL Iron Saturation 16 15 - 55 % [facility] INSURANCE BILL BLOOD SPECIMEN / Unknown 04/26/2010 3:49 PM PHYSICAL DAMAGE APPRAISER 04/26/2010 9:57 PM PHYSICAL DAMAGE APPRAISER Narrative Resulting Agency Comment [facility] [address] [place] [phone] Krishan Silva III, MD LAB - CHEMISTRY OR DERABLES [facility] INSURANCE BILL * VITAMIN B12 FOLATE PANEL (04/26/2010 3:49 PM PHYSICAL DAMAGE APPRAISER) Vitamin B12 515 211 - 946 pg/mL [facility] INSURANCE BILL Folate 18.9 >3.0 ng/mL [facility] INSURANCE BILL Comment: Indeterminate: 2.2 - 3.0 Deficient: <2.2 BLOOD SPECIMEN / Unknown 04/26/2010 3:49 PM PHYSICAL DAMAGE APPRAISER 04/26/2010 9:57 PM PHYSICAL DAMAGE APPRAISER Narrative Resulting Agency Comment [facility] [address] [phone] Krishan Silva III, MD LAB - CHEMISTRY OR DERABLES [facility] INSURANCE BILL * (ABNORMAL) FERRITIN (04/26/2010 3:49 PM PHYSICAL DAMAGE APPRAISER) Ferritin 11(L) 13 - 150 ng/mL [facility] INSURANCE BILL BLOOD SPECIMEN / Unknown 04/26/2010 3:49 PM PHYSICAL DAMAGE APPRAISER 04/26/2010 9:57 PM PHYSICAL DAMAGE APPRAISER Narrative Resulting Agency Comment [facility] [address] [phone] Krishan Silva III, MD LAB - CHEMISTRY OR DERABLES Performing Organization Address [facility] Co de Phone Number [facility] INSURANCE BILL * (ABNORMAL) LIPID PROFILE W LDL/HDL (PO REF LAB) (12/17/2009 11:47 AM CDT) Cholesterol 246(H) 100 - 199 mg/dL [facility] INSURANCE BILL Triglycerides 111 0 - 149 mg/dL [facility] INSURANCE BILL HDL Cholesterol 63 >39 mg/dL [facility] INSURANCE BILL Comment: According to ATP-III Guidelines, HDL-C >59 mg/dL is considered a negative risk factor for CHD. VLDL Calculated 22 5 - 40 mg/dL [facility] INSURANCE BILL LDL Calculated 161(H) 0 - 99 mg/dL [facility] INSURANCE BILL LDL/HDL Ratio 2.6 0.0 - 3.2 ratio units [facility] INSURANCE BILL BLOOD SPECIMEN / Unknown 12/17/2009 11:47 AM CDT 12/17/2009 8:14 PM CDT Narrative Resulting Agency Comment [facility] [address] [phone] Krishan Silva III, MD LAB - CHEMISTRY OR DERABLES Performing Organization Address [facility] de Phone Number [facility] INSURANCE BILL * VITAMIN D 25-HYDROXY (12/17/2009 11:47 AM CDT) Vitamin D, 25 Hydroxy 35.2 32.0 - 100.0 ng/mL [facility] INSURANCE BILL Comment: Recent studies consider the lower limit of 32.0 ng/mL to be a threshold for optimal health. Neftaly BW. J Nutr. 2005 Jun;135(2):317-22. BLOOD SPECIMEN / Unknown 12/17/2009 11:47 AM CDT 12/17/2009 8:14 PM CDT Narrative Resulting Agency Comment [facility] [address] [phone] Krishan Silva III, MD LAB - CHEMISTRY OR DERABLES [facility] INSURANCE BILL * US AORTA (05/17/2007) Anatomical Region Laterality Modality Other Krishan Silva III, MD ORDERABLES Care Teams Probation Worker Relationship Specialty Start Date End Date Watson Bowser MD 12/18/09
--- OUTSIDE RECORDS SUMMARY | 2024-07-28 10:47 | XMS_ITS | Clinical Summary ---
Author Organization [facility] Address [address] [place] [address] Care Team Providers Care Piano Mechanic Name Role Phone Watson Bowser MD Unavailable Unavailable Source Comments [facility],non-owned Affiliates and Associated Physician Practices is amultiple site organization consisting of ambulatory clinics and hospital sitesin [place], [place], [place] and [place]. This disclosure is being madepursuant to the Care Everywhere program and may not contain all information available regarding this patient. Last updated 18.[facility] [employer] Allergies No known active allergies Medications * [...] 09/18/2012 11:10 AM CDT Plan of Treatment Health Maintenance Due Date Last Done Comments MEDICARE AWV 12 MONTHS 1940 DTAP/TDAP/TD VACCINES (1 - Tdap) 1960 ZOSTER VACCINE (2 of 3) 06/08/2007 04/13/2007 PNEUMOCOCCAL VACCINE 50+ (2 of 2 - PCV) 04/13/2008 04/13/2007 Respiratory Syncytial Virus (RSV) Vaccine Pt: or over 60 yrs (1 - 1-dose 75+ series) 2016 COVID-19 VACCINE (1 - season) 2024 INFLUENZA VACCINE (#1) 2024 2, 02/22/2011, 02/24/2010, Additional history exists DEPRESSION SCREENING 05/14/2024 BONE DENSITY TESTING Completed 09/18/2012, 05/17/19 08 HEPATITIS B VACCINE Aged Out No longe r eligible based on patient's age to complete this topic HIB VACCINE Aged Out No longer eligi ble based on patient's age to complete this topic HPV VACCINE Aged Out No longer eligi ble based on patient's age to complete this topic MENINGOCOCCAL (Group B) VACCINE SHARED DECISION-MAKING Aged Out No longer eligible based on patient's age to complete this topic MENINGOCOCCAL GROUPS A/C/Y/W VACCINE Aged Out No longer eligible based on patient's age to complete this topic Procedures Procedure Name Priority Date/Time Associated Diagnosis Comments DEXA BONE DENSITY AXIAL SKELETON Routine 09/18/2012 7:06 PM CDT Osteoporosis from Last 3 Months or Most Recently Relevant to Health Maintenance Results * DEXA BONE DENSITY AXIAL SKELETON (09/18/2012 7:06 PM CDT) Anatomical Region Laterality Modality Other Narrative 09/18/2012 7:06 PM CDT Devendra Upton MD 09/18/2012 7:06 PM [facility] BONE DENSITY REPORT Pt. Name: Malgorzata Mandel Gender: female : 1940 Test Date: 09/18/2012 Referring Physician: Krishan Silva III, MD Technologist: RONY Lockhart A Central DXA was performed today using a [employer] QDR Discovery C director of research and development. The images and data have been scanned. [...] Devendra Upton MD Physician and Certified Clinical Fuel Manager Procedure Note Shirley Biggs - 09/18/2012 11:12 AM CDT [facility] BONE DENSITY REPORT Pt. Name: Malgorzata Mandel Gender: female : 1940 Test Date: 09/18/2012 Referring Physician: Krishan Silva III, MD Technologist: RONY Lockhart A Central DXA was performed today using a Hologic QDR Discovery C director of research and development.The images and data have been scanned. 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
[2024-07-28 13:59] LABS: Hematocrit 44.2 % (37.0-47.0); Mean Corpuscular HGB Conc 31.7 g/dl (32-36); Mean Corpuscular Hemoglobin 30.2 pg (26-34); Mean Corpuscular Volume 95.3 fl (80-100); Mean Platelet Volume 9.9 fl (7.4-10.4); Platelet Count Result 260 k/mm3 (150-375); Red Blood Count 4.64 M/mm3 (4.2-5.4); Red Cell Distribution Width 12.8 % (11.5-14.5)
[2024-07-28 16:10] LABS: Alanine Aminotransferase 16 U/L (6-35); Albumin Level 4.4 g/dL (3.5-5.1); Alkaline Phosphatase 121 U/L (38-126); Anion Gap 7 mmol/L (4-12); Aspartate Amino Transferase 32 U/L (14-36); Bilirubin,Total 0.9 mg/dL (0.2-1.3); Blood Urea Nitrogen 14 mg/dL (7-17); Calcium 9.5 mg/dL (8.4-10.2); Carbon Dioxide 32 mmol/L (22-30); Chloride 101 mmol/L (98-107); Cholesterol 181 mg/dL (0-200); Estimated Glomerular Filt Rate > 60; Glucose 110 mg/dL (65-110); HDL Direct 67 mg/dL; Potassium 4.1 mmol/L (3.4-5.0); Sodium 140 mmol/L (137-145); Triglycerides 109 mg/dL (<150)
[2024-07-28 16:21] LABS: LDL Cholesterol Direct 79 mg/dL
[2024-07-28 20:25] LABS: Hemoglobin A1C 5.9 % (<5.7)
== END 2024-07-28 09:41 | disposition home or self-care (01) ==
LOC: ANHGOSHLAB 09:41
PROVIDERS: PCP Family Medicine; Visit Provider Family Medicine
DX: F32.9 Major depressive disorder, single episode, unspecified (principal); Z79.899 Other long term (current) drug therapy; I10 Essential (primary) hypertension; E78.00 Pure hypercholesterolemia, unspecified; R73.03 Prediabetes
CPT/HCPCS: 36415; 80053; 80061; 83036; 84443; 85027

== ENCOUNTER 2024-08-22 08:26 | Outpatient (CLI) | payer MEDICARE, SELFPAY ==
--- NOTE | ~2024-08-22 | MM_ITS ---
EXAMINATION: MM screening nathalia BI w isac HISTORY: Screening TECHNIQUE: Craniocaudal and mediolateral oblique 3-D tomosynthesis images were obtained and synthetic 2-D images were generated. CAD analysis was submitted and interpreted. COMPARISON: Comparison to multiple prior studies sequentially, with oldest reviewed study dated 04/13. BREAST PARENCHYMAL COMPOSITION: Not dense: There are scattered areas of fibroglandular density. FINDINGS: There is no evidence of suspicious mass, calcification, or architectural distortion to sugg est malignancy in either breast. There has been no suspicious interval change. IMPRESSION: 1. No mammographic evidence of malignancy. 2. Recommend routine screening mammography in one year. BI-RADS Category 1: Negative Reviewed, dictated and finalized at location A.
--- OUTSIDE RECORDS SUMMARY | 2024-08-22 08:34 | XMS_ITS | Encounter Summary ---
Author Organization [facility] Address [address] [place] [address] Care Team Providers Care Invisible Braces Orthodontist Name Role Phone Unavailable Primary Care Provider Unavailabl e Encounter Details Date Type Department Care Team (Late st Contact Info) Description 12/30/1999 Outpatient Historical [facility] [address] [place] [address] Kamron Villeda ([employer]) Social History Tobacco Use Types Packs/Day Years Used Date Smoking Tobacco: Never Assessed Comments Unknown Sex and Gender Information Value Date Recorded Sex Assigned at Not on file Legal Sex Female 3:53 AM AD TAKER Gender Identity Not on file Sexual Orientation Not on file documented as of this encounter Plan of Treatment Not on file documented as of this encounter Visit Diagnoses Not on filedocumented in this encounter
--- OUTSIDE RECORDS SUMMARY | 2024-08-22 08:34 | XMS_ITS | Clinical Summary ---
Author Organization [facility] Address [address] Gordonn: Epic Prelude ADT [place] [address] Care Team Providers Care Clockmaker Apprentice Name Role Phone Unavailable Primary Care Provider Unavailabl e Social History Tobacco Use Types Packs/Day Years Used Date Smoking Tobacco: Never Assessed Comments Unknown Sex and Gender Information Value Date Recorded Sex Assigned at Not on file Legal Sex Female 3:53 AM TRAVEL JOURNALIST Gender Identity Not on file Sexual Orientation [...]
--- OUTSIDE RECORDS SUMMARY | 2024-08-22 08:34 | XMS_ITS | Continuity of Care Document ---
Author Organization [facility] Address [address] [place] [address] [place] [address] Phone Care Team Providers Care Back Tender Cylinder Name Role Phone German Desai Unavailable Unavailable [...] Diagnoses Date Provider Providers Copied on Encounter [facility], [address] [place] [address] [address], [place], [place], [id number], tel:[phone] [facility] No Information 8 Lloyd Porter. [address] , [address], [place], [place], [facility], [place]. tel:[phone] [facility], [address] [place] [address] [address], [place], [place], [id number], [place] tel:[phone] [facility] No Information 200 8 Lloyd Porter. [address] , [address], [place], [address], [place]. tel:[phone] [facility], [address] [place] [address] [address], [place], [place], [id number], [place] tel:[phone] [facility] No Information Jose-1 0-200 8 Doisy Edward. [address] , [address], [place], [address], [place]. tel:[phone] Office/outpati ent Visit, Est [facility], [address], [place], [place], [id number], [place] tel:[phone] [facility] No Information May-2 2-200 8 Doisy Edjudah. [address] , [address], [place], [address], [place]. tel:[phone] [facility], [address], [place], [place], [id number], [place] tel:[phone] [facility] No Information Apr-1 3-200 7 Doisy Edjudah. [address] , [address], [place], [address], [place]. tel:[phone] [facility], [address], [place], [place], [id number], [place] tel:[phone] [facility] No Information Mar-3 0-200 7 Doisy Edjudah. [address] , [address], [place], [address], [place]. tel:[phone] [facility], [address], [place], [place], [id number], [place] tel:[phone] [facility] No Information Mar-2 9-200 7 Doisy Edjudah. [address] , [address], [place], [address], [place]. tel:[phone] Office Consultation [facility], [address], [place], [place], [id number], [place] tel:[phone] [facility] No Information Jul- 3-200 7 Dennysalli Porter. [address] , [address], [place], [address], [place]. tel:[phone] Family History Family Member Type Diagnosis Age At Onset No Information Payers Payer name Insurance type Covered constitution party ID Authoriza tion(s) No Information Social History [...]
--- OUTSIDE RECORDS SUMMARY | 2024-08-22 08:34 | XMS_ITS | Encounter Summary ---
Author Organization [facility] Address [address] [place] [address] Care Team Providers Care Wind Turbine Installer Name Role Phone Unavailable Primary Care Provider Unavailabl e Encounter Details Date Type Department Care Team (Late st Contact Info) Description 10/17/2002 Outpatient Historical [facility] [address] [place] [address] Kamron Villeda (Lessons Only) Social History Tobacco Use Types Packs/Day Years Used Date Smoking Tobacco: Never Assessed Comments Unknown Sex and Gender Information Value Date Recorded Sex Assigned at Not on file Legal Sex Female 3:53 AM REFLEXOLOGIST Gender Identity Not on file Sexual Orientation Not on file documented as of this encounter Plan of Treatment Not on file documented as of this encounter Visit Diagnoses Not on filedocumented in this encounter
--- OUTSIDE RECORDS SUMMARY | 2024-08-22 08:34 | XMS_ITS | Encounter Summary ---
Author Organization [facility] Address 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
--- OUTSIDE RECORDS SUMMARY | 2024-08-22 08:34 | XMS_ITS | Encounter Summary ---
Author Organization [facility] Address [address] [place] [address] Care Team Providers Care Train Caller Name Role Phone Unavailable Primary Care Provider Unavailabl e Encounter Details Date Type Department Care Team (Late st Contact Info) Description 11/17/2004 Outpatient Historical [facility] [address] [place] [address] Kamron Villeda ([employer]) Social History Tobacco Use Types Packs/Day Years Used Date Smoking Tobacco: Never Assessed Comments Unknown Sex and Gender Information Value Date Recorded Sex Assigned at Not on file Legal Sex Female 3:53 AM CAR KNOCKER Gender Identity Not on file Sexual Orientation Not on file documented as of this encounter Plan of Treatment Not on file documented as of this encounter Visit Diagnoses Not on filedocumented in this encounter
--- OUTSIDE RECORDS SUMMARY | 2024-08-22 08:34 | XMS_ITS | Clinical Summary ---
Author Organization [facility] Address [address] [place] [address] Care Team Providers Care Educational Psychologist Name Role Phone Watson Bowser MD Unavailable Unavailable Source Comments [facility],non-owned Affiliates and Associated Physician Practices is amultiple site organization consisting of ambulatory clinics and hospital sitesin [place], [place], [place] and [place]. This disclosure is being madepursuant to the Care Everywhere program and may not contain all information available regarding this patient. Last updated 18.[facility] [employer] Allergies No known active allergies Medications * [...] 2016 COVID-19 VACCINE (1 - season) 2024 DEPRESSION SCREENING 05/14/2024 INFLUENZA VACCINE (Season Ended) 2025 02/22/2012, 02/22/2011, 02/24/2010, Additional history exists BONE DENSITY TESTING Completed 09/18/2012, 05/17/19 08 [...] CDT Devendra Upton MD 09/18/2012 7:06 PM [facility] Medical group BONE DENSITY REPORT Pt. Name: Malgorzata Mandel Gender: female : 1940 Test Date: 09/18/2012 Referring Physician: Krishan Silva III, MD Technologist: RONY Lockhart A Central DXA was performed today using a [employer] QDR Discovery C clinic receptionist. The images and data have been scanned. [...] Devendra Upton MD Physician and Certified Clinical Public Improvement Inspector Procedure Note Shirley Biggs - 09/18/2012 11:12 AM CDT [facility] Medical group BONE DENSITY REPORT Pt. Name: Malgorzata Mandel Gender: female : 1940 Test Date: 09/18/2012 Referring Physician: Krishan Silva III, MD Technologist: RONY Lockhart A Central DXA was performed today using a Hologic QDR Discovery C clinic receptionist.The images and data have been scanned. Images [...] Devendra Upton MD Physician and Certified Clinical Public Improvement Inspector Krishan Silva III, MD DEXA ORDERABLES from Last 3 Months or Most Recently Relevant to Health Maintenance Advance Directives Documents on File Type Date Recorded Patient Trademark Attorney Expl anation Adv Directive/Living Will/POA 07/06/2008 Care Teams Educational Psychologist Relationship Specialty Start Date End Date Watson Bowser MD 12/18/09
== END 2024-08-22 08:27 | disposition home or self-care (01) ==
PROVIDERS: PCP Family Medicine; Visit Provider Family Medicine
DX: Z12.31 Encounter for screening mammogram for malignant neoplasm of breast (principal)
CPT/HCPCS: 77063; 77067

== ENCOUNTER 2024-09-10 09:44 | Emergency (ER) | payer MEDICARE, SELFPAY ==
[2024-09-10 09:52] VITALS: BP 134/71; PULSE 70; RESP 16; TEMP 36.6; O2SAT 100
--- NOTE | 2024-09-10 09:57 | ED_ITS ---
HPI - Nausea/Vomiting/Diarrhea General Chief complaint: Nausea/Vomiting/Diarrhea Stated complaint: VOMITING/DIARRHEA Time Seen by Provider: 09/10/24 09:57 Source: patient and RN notes reviewed Mode of arrival: ambulatory Limitations: no limitations History of Present Illness HPI Narrative: 83-year-old female presents Express Care complaining of nausea, vomiting, diarrhea. Patient says symptoms started 5 days ago. She initially started with nausea and vomiting and then developed diarrhea. She has not vomited in 5 days since her symptoms started. However patient continues to have watery diarrhea. She says she has diarrhea at least 4 to 5 times a day. She says her appetite is decreased. She has been able to eat chicken noodle soup multiple times a day. She says she is able to keep fluids down. Patient denies any mucus or blood in her stools. Denies any abdominal pain or fevers. Patient denies any sick contacts. She did have family over for Easter 5 days ago and she says she was only one that got sick. Related Data Allergies Allergy/AdvReac Type Severity Reaction Status Date / Time No Known Allergies Allergy Mild Verified 09/10/24 10:00 Review of Systems Review of Systems: CONSTITUTIONAL: Denies fever, chills, or sweats. EYES: Denies visual changes, redness, or discharge. ENT: Denies rhinorrhea, congestion, sore throat, or otalgia. CARDIOVASCULAR: Denies chest pain, palpitations, or edema. RESPIRATORY: Denies cough or dyspnea. GASTROINTESTINAL: Denies abdominal pain, blood in stool, mucous stool. Positive for nausea, vomiting, or diarrhea. GENITOURINARY: Denies dysuria or hematuria. SKIN: Denies rash or itching. MUSCULOSKELETAL: Denies back pain, joint pain, or myalgia. NEUROLOGIC: Denies headache, numbness, or weakness. PSYCHIATRIC: Denies anxiety or depression. All other systems reviewed are negative, except as documented in HPI. [facility] Past Medical History Medical History Rotator cuff tear (~1982) Age-related osteoporosis without current pathological fracture Essential (primary) hypertension Gastro-esophageal reflux disease without esophagitis Prediabetes Pure hypercholesterolemia, unspecified Surgical History Surgical History Hx of hysterectomy Family History Family History Mother Diabetes mellitus Hypertension Family history of cardiovascular disease Other Family history of aortic aneurysm Family history of elevated blood lipids Social History Social History Social History: Caffeine-coffee Smoking status: Never smoker Alcohol intake: never Substance use: never Substance use type: does not use Lack of Transportation: No Lack of Food: Never True Current Housing: I Have Housing Concerned About Future Housing: No Difficulty Paying Gas/Electric Bills: No Difficulty Paying for Meds: No Currently Unemployed: No Education: High School Diploma/GED Difficulty w/ Childcare or Family Care: YES Living arrangements: alone Occupation/Education: retired Gender identity (if verbalized by the patient): Female Sexual Orientation (if Verbalized by the Patient): Straight or Heterosexual Agree to blood products: Yes Comments At the time of my signature, I reviewed and agree with the nursing past medical, surgical, social, and family history. There is no relevant family history pertinent to the patient complaint. Exam Narrative: GENERAL: This is a well-nourished, well-developed adult, in no apparent distress. They are non ill-appearing, nontoxic appearing. HEAD: normocephalic, atraumatic. EYES: Sclera clear/white. Conjunctiva normal. Vision is grossly intact. Extraocular movements intact EARS: External ears normal Hearing grossly intact. NOSE: External nose normal THROAT: Mucous membranes moist NECK: Normal range of motion CARDIOVASCULAR: Regular rate and rhythm without murmurs, gallops, or rubs. RESPIRATORY: Clear to auscultation. Breath sounds equal bilaterally. No wheezes, rales, or rhonchi. GASTROINTESTINAL: Abdomen soft, non-tender, nondistended. Bowel sounds are active. No hepato-splenomegaly, or palpable masses. No guarding. SKIN: warm, Dry, intact with no suspicious lesions or rash, good texture and t urgor. NEURO: awake, alert, and oriented to person, place and time. There were no obvious focal neurologic abnormalities. EXTREMITIES: No joint tenderness, effusion, or edema noted. Course Course Emergency Course: Portions of this record may have been created with voice recognition software Level of Care: Express Care Visit Vital Signs Vital signs: Vital Signs Temperature 98 F 09/10/24 09:52 Pulse Rate 70 09/10/24 09:52 Respiratory Rate 16 09/10/24 09:52 Blood Pressure 134/71 09/10/24 09:52 Pulse Oximetry 100 09/10/24 09:52 Oxygen Delivery Room Air 09/10/24 09:52 Temperature 98 F 09/10/24 09:52 Pulse Rate 70 09/10/24 09:52 Respiratory Rate 16 09/10/24 09:52 Blood Pressure 134/71 09/10/24 09:52 Pulse Oximetry 100 09/10/24 09:52 Oxygen Delivery Room Air 09/10/24 09:52 Reviewed MDM - Nausea/Vomiting/Diarrhea MDM Narrative Medical decision making narrative: Symptoms are likely consistent with a viral gastroenteritis. Patient states only having brown watery stools. Patient has no inflammatory signs of diarrhea or abdominal pain. Patient does not appear clinically dehydrated. Mucous membranes are moist. Discussed physical exam findings. Advised supportive me asures and signs/symptoms to go to the ER. Pt is appropriate for outpt treatment and f/u. Differential Diagnosis Differential diagnosis: Likely food poisoning, gastroenteritis and dehydration Critical Care Time Critical Care Time Critical Care Time: No Discharge Plan Discharge Clinical Impression: Diarrhea Qualifiers: Diarrhea type: unspecified type Qualified Code(s): R19.7 - Diarrhea, unspecified Patient Disposition: Home Condition: Stable Instructions: Acute Diarrhea (ED) Additional Instructions: You may take Pepto-Bismol as needed for your diarrhea. You may take Imodium for uncontrollable diarrhea if the Pepto-Bismol is not working. Is likely a viral illness and will have to run its course. You may take Zofran as directed for nausea and vomiting. Please drink plenty of fluids including water and sports drinks that have electrolytes in them. You may eat more boiled starches, cereal s, potatoes, noodles, rice, we wheats, oats, crackers, bananas, soups, or portal vegetables to help with your watery diarrhea. Please follow-up with your primary care provider in 3 days. If you develop abdominal pain, fevers, bloody stools, mucous stools, uncontrollable nausea and vomiting, dehydration, or any other concerns please go to the ER immediately. Patient Language: South Sudanese Prescriptions: New ondansetron 4 mg tablet,disintegrating 4 mg PO Q8H PRN (Reason: nausea and vomiting) Qty: 10 0RF No Action alendronate 70 mg tablet 70 mg PO WEEKLY Qty: 12 1RF atorvastatin 10 mg tablet 10 mg PO DAILY Qty: 90 1RF nadolol 40 mg tablet 40 mg PO DAILY Qty: 90 1RF Follow-up/Referrals: America Garcia DO [Primary Care Provider] - Time of Disposition: 10:13
== END 2024-09-10 10:25 | disposition home or self-care (01) ==
PROVIDERS: PCP Family Medicine
DX: R19.7 Diarrhea, unspecified (principal); I10 Essential (primary) hypertension; K21.9 Gastro-esophageal reflux disease without esophagitis; E78.00 Pure hypercholesterolemia, unspecified; R73.03 Prediabetes; M81.0 Age-related osteoporosis without current pathological fracture
CPT/HCPCS: 99213; G0463

== ENCOUNTER 2024-12-16 08:15 | Outpatient (CLI) | payer MEDICARE, SELFPAY ==
--- OUTSIDE RECORDS SUMMARY | 2024-12-16 08:19 | XMS_ITS | Encounter Summary ---
Author Organization [facility] Address [address] [place] [address] Care Team Providers Care Mill Recorder Name Role Phone Unavailable Primary Care Provider Unavailabl e Encounter Details Date Type Department Care Team (Late st Contact Info) Description 11/17/2004 Outpatient Historical [facility] [address] [place] [address] Kamron Villeda ([employer]) Social History Tobacco Use Types Packs/Day Years Used Date Smoking Tobacco: Never Assessed Comments Unknown Sex and Gender Information Value Date Recorded Sex Assigned at Not on file Legal Sex Female 3:53 AM WET POUR SUPERVISOR Gender Identity Not on file Sexual Orientation Not on file documented as of this encounter Plan of Treatment Not on file documented as of this encounter Visit Diagnoses Not on filedocumented in this encounter
--- OUTSIDE RECORDS SUMMARY | 2024-12-16 08:19 | XMS_ITS | Encounter Summary ---
Author Organization [facility] Address [address] [place] [address] Care Team Providers Care Field Artillery Radar Operator Name Role Phone Unavailable Primary Care Provider Unavailabl e Encounter Details Date Type Department Care Team (Late st Contact Info) Description 04/29/2004 Outpatient Historical [facility] [address] [place] [address] Kamron Villeda (Soraa) Social History Tobacco Use Types Packs/Day Years Used Date Smoking Tobacco: Never Assessed Comments Unknown Sex and Gender Information Value Date Recorded Sex Assigned at Not on file Legal Sex Female 3:53 AM AQUACULTURE DIRECTOR Gender Identity Not on file Sexual Orientation Not on file documented as of this encounter Plan of Treatment Not on file documented as of this encounter Visit Diagnoses Not on filedocumented in this encounter
--- OUTSIDE RECORDS SUMMARY | 2024-12-16 08:19 | XMS_ITS | Encounter Summary ---
Author Organization [facility] Address [address] [place] [address] Care Team Providers Care Beamer Hand Name Role Phone Unavailable Primary Care Provider Unavailabl e Encounter Details Date Type Department Care Team (Late st Contact Info) Description 10/17/2002 Outpatient Historical [facility] [address] [place] [address] Kamron Villeda ([employer]) Social History Tobacco Use Types Packs/Day Years Used Date Smoking Tobacco: Never Assessed Comments Unknown Sex and Gender Information Value Date Recorded Sex Assigned at Not on file Legal Sex Female 3:53 AM CHILDCARE CENTER ADMINISTRATOR Gender Identity Not on file Sexual Orientation Not on file documented as of this encounter Plan of Treatment Not on file documented as of this encounter Visit Diagnoses Not on filedocumented in this encounter
--- OUTSIDE RECORDS SUMMARY | 2024-12-16 08:19 | XMS_ITS | Encounter Summary ---
Author Organization [facility] Address [address] [place] [address] Care Team Providers Care Nuclear Reactor Technician Name Role Phone Unavailable Primary Care Provider Unavailabl e Encounter Details Date Type Department Care Team (Late st Contact Info) Description 12/30/[address] [facility] [address] [place] [address] Kamron Villeda ([employer]) Social History Tobacco Use Types Packs/Day Years Used Date Smoking Tobacco: Never Assessed Comments Unknown Sex and Gender Information Value Date Recorded Sex Assigned at Not on file Legal Sex Female 3:53 AM LEGAL OPERATIONS MANAGER Gender Identity Not on file Sexual Orientation Not on file documented as of this encounter Plan of Treatment Not on file documented as of this encounter Visit Diagnoses Not on filedocumented in this encounter
--- OUTSIDE RECORDS SUMMARY | 2024-12-16 08:19 | XMS_ITS | Clinical Summary ---
Author Organization [facility] Address [address] 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
--- OUTSIDE RECORDS SUMMARY | 2024-12-16 08:19 | XMS_ITS | Clinical Summary ---
Author Organization [facility] Address [facility] [place] [address] Care Team Providers Care Assistant Store Manager Operations Name Role Phone Watson Bowser MD Unavailable Unavailable Source Comments [facility],non-owned Affiliates and Associated Physician Practices is amultiple site organization consisting of ambulatory clinics and hospital sitesin [place], [place], [place] and [place]. This disclosure is being madepursuant to the Care Everywhere program and may not contain all information available regarding this patient. Last updated 18.[facility] [employer] Allergies No known active allergies Medications * Be aware that medications may not be up to date on this document. Alwaysverify current medications with the patient. CALCIUM + D PO Take by mouth. 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 Gender Identity Not on file Sexual Orientation [...] 11:10 AM CDT Height 164.5 cm (5' 4.75) 09/18/2012 11:10 AM C DT Body Mass Index 21.3 09/18/2012 11:10 AM CDT Plan of Treatment Health Maintenance Due Date Last Done Comments DTAP/TDAP/TD VACCINES (1 - Tdap) 1960 ZOSTER VACCINE (2 of 3) 06/08/2007 04/13/2007 PNEUMOCOCCAL VACCINE 50+ (2 of 2 - PCV) 04/13/2008 04/13/2007 Respiratory Syncytial Virus (RSV) Vaccine Pt: or over 60 yrs (1 - 1-dose 75+ series) 2016 COVID-19 VACCINE (1 - season) 2024 DEPRESSION SCREENING 05/14/2024 INFLUENZA VACCINE (#1) 2025 2, 02/22/2011, 02/24/2010, Additional history exists BONE DENSITY [...] CDT Devendra Upton MD 09/18/2012 7:06 PM [facility] BONE DENSITY REPORT Pt. Name: Malgorzata Mandel Gender: female : 1940 Test Date: 09/18/2012 Referring Physician: Krishan Silva III, MD Technologist: RONY oLckhart A Central DXA was performed today using a HoloUrban Ladder QDR Discovery C fabricator assembler metal products. The images and data have been scanned. [...] Devendra Upton MD Physician and Certified Clinical Mounted Police Procedure Note Shirley Biggs - 09/18/2012 11:12 AM CDT [facility] BONE DENSITY REPORT Pt. Name: Malgorazta Mandel Gender: female : 1940 Test Date: 09/18/2012 Referring Physician: Krishan Silva III, MD Technologist: RONY Lockhart A Central DXA was performed today using a HoloUrban Ladder QDR Discovery C fabricator assembler metal products.The images and data have been scanned. Images [...] Devendra Upton MD Physician and Certified Clinical Mounted Police Krishan Silva III, MD DEXA ORDERABLES Final Resu lt from Last 3 Months or Most Recently Relevant to Health Maintenance Insurance [facility] [place]: [facility] [address] [place] [address] MEDICARE MEDICARE Advance Directives Documents on File Type Date Recorded Patient Cnc Service Technician Expl anation Adv Directive/Living Will/POA 07/06/2008 Care Teams Assistant Store Manager Operations Relationship Specialty Start Date End Date Watson Bowser MD 12/18/09
[2024-12-16 19:17] LABS: Alanine Aminotransferase 20 U/L (6-35); Albumin Level 4.3 g/dL (3.5-5.1); Alkaline Phosphatase 112 U/L (38-126); Anion Gap 8 mmol/L (4-12); Aspartate Amino Transferase 63 U/L (14-36); Bilirubin,Total 1.1 mg/dL (0.2-1.3); Blood Urea Nitrogen 17 mg/dL (7-17); Calcium 9.7 mg/dL (8.4-10.2); Carbon Dioxide 29 mmol/L (22-30); Chloride 103 mmol/L (98-107); Cholesterol 195 mg/dL (0-200); Estimated Glomerular Filt Rate > 60; Glucose 87 mg/dL (65-110); HDL Direct 60 mg/dL; Potassium 4.5 mmol/L (3.4-5.0); Sodium 140 mmol/L (137-145); Total Protein 7.3 g/dL (6.3-8.2); Triglycerides 92 mg/dL (<150)
[2024-12-16 19:34] LABS: Hematocrit 45.5 % (37.0-47.0); Hemoglobin 13.9 g/dL (12.0-15.0); Mean Corpuscular HGB Conc 30.5 g/dl (32-36); Mean Corpuscular Hemoglobin 29.5 pg (26-34); Mean Corpuscular Volume 96.6 fl (80-100); Platelet Count Result 244 k/mm3 (150-375); Red Blood Count 4.71 M/mm3 (4.2-5.4); White Blood Count 5.9 K/mm3 (4.5-10.0)
[2024-12-16 19:55] LABS: Thyroid Stimulating Hormone 0.720 uIU/mL (0.465-4.680)
[2024-12-16 20:03] LABS: Hemoglobin A1C 6.1 % (<5.7)
== END 2024-12-16 08:16 | disposition home or self-care (01) ==
LOC: ANHGOSHLAB 08:16
PROVIDERS: PCP Family Medicine; Visit Provider Family Medicine
DX: R73.03 Prediabetes (principal); I10 Essential (primary) hypertension; E78.00 Pure hypercholesterolemia, unspecified; Z79.899 Other long term (current) drug therapy
CPT/HCPCS: 36415; 80053; 80061; 83036; 84443; 85027

== ENCOUNTER 2025-03-09 15:12 | Outpatient (CLI) | payer MEDICARE, SELFPAY ==
--- OUTSIDE RECORDS SUMMARY | 2007-10-30 05:57 | XMS_ITS | Continuity of Care Document ---
Author Organization [facility] Address [address] [place] [address] [place] [address] Phone Care Team Providers Care Director Strategy Name Role Phone German Desai Unavailable Unavailable Procedures Procedure Date Post-op Follow-up Visit Post-op Follow-up Visit Remove Cataract, Insert Lens,Comanaged J Office/outpatient Visit, Est IOLMaster Post-op Follow-up Visit Post-op Follow-up Visit Remove Cataract, Insert Lens Office Consultation Advance Directives Directive Yes / No Effective Date File Name No Information Encounters Encounter Description Practice Location Reason(s) For Visit Diagnoses Date Provider Providers Copied on Encounter [facility], [address] [place] [address] [address], [place], [place], [id number], tel:[phone] SEC [facility] No Information 8 Lloyd Porter. [address] , [address], [place], [place], [facility], [place]. tel:[phone] [facility], [address] [place] [address] [address], [place], [place], [id number], [place] tel:[phone] SEC [facility] No Information 200 8 Lloyd Porter. [address] , [address], [place], [address], [place]. tel:[phone] [facility], [address] [place] [address] [address], [place], [place], [id number], [place] tel:[phone] [facility] No Information Jose-1 0-200 8 Doisy Edward. [address] , [address], [place], [address], [place]. tel:[phone] Office/outpati ent Visit, Est [facility], [address], [place], [place], [address], [place] tel:[phone] SEC [facility] No Information May-2 2-200 8 Doisy Edjudah. [address] , [address], [place], [address], [place]. tel:[phone] [facility], [address], [place], [place], [address], [place] tel:[phone] [facility] No Information Apr-1 3-200 7 Doisy Edjudah. [address] , [address], [place], [address], [place]. tel:[phone] [facility], [address], [place], [place], [address], [place] tel:[phone] SEC [facility] No Information Mar-3 0-200 7 Doisy Ed[address]duah. [address] , [address], [place], [address], [place]. tel:[phone] [facility], [address], [place], [place], [address], [place] tel:[phone] [facility] No Information Mar-2 9-200 7 Doisy Edjudah. [address] , [address], [place], [address], [place]. tel:[phone] Office Consultation [facility], [address], [place], [place], [id number], [place] tel:[phone] [facility] No Information Jul- 3-200 7 Dennysalli Porter. [address] [facility] , [address], [place], [address], [place]. tel:[phone] Family History Family Member Type Diagnosis Age At Onset No Information Payers Payer name Insurance type Covered democrat ID Authoriza tion(s) No Information Social History Type Description Quantity Date Captured Comments Sex Female Smoking Status No Information Chief Complaint And Reason For Visit No Information Reason For Referral Reason For Referral No Information History Of Present Illness Encounter Date Complaint History Of Prese nt Illness No Information Functional Status Date Functional Assessmen t No Information Instructions Date Instruction Additional Infor mation No Information Assessments Type Assessment Date No Information Patient Care Teams Name Effective Dates (start - stop) Status Members No Information
--- NOTE | ~2025-03-09 | DEXA_ITS ---
Bone Density Report Name: JACKIE GARZA Age: 84 Sex: Female Ethnicity: White Date of : 1940 Indication: osteopenia; height loss; prior fracture; hysterectomy; Referring Provider: AFIA PERLA Study: Bone densitometry was performed. Exam Date: March 09, 2025 Accession number: [id number] Bone Density: Region BMD T-score Z-score Classification AP Spine(L1-L4) 0.804 -2.2 0.6 Osteopenia Femoral Neck (Left) 0.518 -3.0 -0.5 Osteoporosis Total Hip (Left) 0.682 -2.1 0.1 Osteopenia Femoral Neck (Right) 0.495 -3.2 -0.7 Osteoporosis Total Hip (Right) 0.677 -2.2 0.1 Osteopenia Total Hip Mean 0.680 -2.2 0.1 Osteopenia World Health Organization criteria for BMD impression classify patients as: Normal (T-score at or above -1.0), Osteopenia (T-score between -1.0 and -2.5), or Osteoporosis (T-score at or below -2.5). 10-year Fracture Risk: FRAX not reported because: Some T-score for Spine Total or Hip Total or Femoral Neck at or below -2.5 Previous Exams: Region Exam Age BMD T-score BMD Change BMD Change Date g/cm2 vs Baseline vs Previous AP Spine (L1-L4) 03/09/2025 84 0.804 -2.2 0.022 (2.8%) -0.032 (-3.8%) 06/05/2022 81 0.836 -1.9 0.054 (6.9%)* 0.054 (6.9%)* 04/05/2018 77 0.782 -2.4 Total Hip(Left) 03/09/2025 84 0.682 -2.1 0.007 (1.0%) -0.013 (-1.9%) 06/05/2022 81 0.695 -2.0 0.020 (2.9%) 0.020 (2.9%) 04/05/2018 77 0.675 -2.2 Total Hip(Right) 03/09/2025 84 0.677 -2.2 0.026 (4.0%) 0.016 (2.4%) 06/05/2022 81 0.661 -2.3 0.011 (1.6%) 0.011 (1.6%) 04/05/2018 77 0.650 -2.4 *Denotes significance at 95% confidence level, LSC for AP Spine = 0.022 g/cm2, LSC for Total Hip = 0.027 g/cm2 Clinical Information Provided by Patient: Has had a low trauma fracture Has used the following medications: Calcium Has the following medical conditions: Hysterectomy Patient maximum height was 65 Menopause Age: 49 Does not regularly consume dairy products Onset of menses at age 13 Number of children 2 Impression: The patient has established osteoporosis, based on the Right Femoral Neck T-score and the existence of a prior fracture. The patient has risk factors, including: previous fracture. The BMD for the AP Spine (L1-L4) decreased, changing by -3.8% since the last DXA exam. Discussion: HIGH RISK OF FRACTURE. BONE DENSITY IS UNDESIRABLY LOW AT ONE OR MORE SKELETAL SITES, CONSISTENT WITH POSTMENOPAUSAL OSTEOPOROSIS. This patient's lowest T-score, in a patient who has previously fractured, meets the World Health Organization's (WHO) criteria for severe osteoporosis. In untreated patients, the risk of osteoporotic fracture increases approximately two-fold for each 1.0 SD decrease in T-score. Low bone density is not the only risk factor for fracture; also consider factors such as patient's age, frailty or poor health, risk of falling, risk of injury, previous osteoporotic fracture, family history of osteoporosis, cigarette smoking, low body weight, etc. Not everyone with low bone mineral density has osteoporosis; osteomalacia and other metabolic bone disorders should also be considered. Patients who have osteoporosis should be evaluated for specific diseases and conditions (secondary causes) that may cause or contribute to bone loss. The [place] Association of Clinical Endocrinologists (AACE) and National Osteoporosis Foundation (NOF) recommend pharmacologic intervention for all postmenopausal women whose T-score is in this range. The patient should follow a healthful lifestyle (good nutrition with adequate calcium and vitamin D, and appropriate weight-bearing exercise). Follow-Up: Consider a repeat BMD and Vertebral Fracture Assessment (VFA) exam in 2 years or sooner if medically necessary, to reassess this patient's status. Reported by: FILIBERTO on 03/09/2025 3:57:00 PM. Reviewed, dictated and finalized at location A.
--- OUTSIDE RECORDS SUMMARY | 2025-03-09 16:48 | XMS_ITS | Encounter Summary ---
Author Organization [facility] Address [address] [place] [address] Care Team Providers Care Cookee Name Role Phone Unavailable Primary Care Provider Unavailabl e Encounter Details Date Type Department Care Team (Late st Contact Info) Description 04/29/2004 Outpatient Historical [facility] 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
--- OUTSIDE RECORDS SUMMARY | 2025-03-09 16:48 | XMS_ITS | Encounter Summary ---
Author Organization [facility] Address 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
--- OUTSIDE RECORDS SUMMARY | 2025-03-09 16:48 | XMS_ITS | Encounter Summary ---
Author Organization [facility] Address 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
--- OUTSIDE RECORDS SUMMARY | 2025-03-09 16:48 | XMS_ITS | Encounter Summary ---
Author Organization [facility] Address 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
--- OUTSIDE RECORDS SUMMARY | 2025-03-09 16:48 | XMS_ITS | Clinical Summary ---
Author Organization [facility] Address [address] 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
--- OUTSIDE RECORDS SUMMARY | 2025-03-09 16:48 | XMS_ITS | Clinical Summary ---
Author Organization [facility] Address [facility] [place] [address] Care Team Providers Care Coke Production Heater Name Role Phone Watson Bowser MD Unavailable Unavailable Source Comments [facility],non-owned Affiliates and Associated Physician Practices is amultiple site organization consisting of ambulatory clinics and hospital sitesin [place], [place], [place] and [place]. This disclosure is being madepursuant to the Care Everywhere program and may not contain all information available regarding this patient. 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 Name: Malgorzata Mandel Gender: female : 1940 Test Date: 09/18/2012 Referring Physician: Krishan Silva III, MD Technologist: RONY Lockhart A Central DXA was performed today using a HoloSofea QDR Discovery C service establishment attendant. The images and data have been scanned. [...] Devendra Upton MD Physician and Certified Clinical Cook Barbecue Procedure Note Shirley Biggs - 09/18/2012 11:12 AM CDT [facility] BONE DENSITY REPORT Pt. Name: Malgorzata Mandel Gender: female : 1940 Test Date: 09/18/2012 Referring Physician: Krishan Silva III, MD Technologist: RONY Lockhart A Central DXA was performed today using a HoloSofea QDR Discovery C service establishment attendant.The images and data have been scanned. 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
== END 2025-03-09 15:13 | disposition home or self-care (01) ==
PROVIDERS: PCP Family Medicine; Visit Provider Family Medicine
DX: M85.88 Other specified disorders of bone density and structure, other site (principal); M81.0 Age-related osteoporosis without current pathological fracture; M85.852 Other specified disorders of bone density and structure, left thigh; M85.851 Other specified disorders of bone density and structure, right thigh
CPT/HCPCS: 77080

== ENCOUNTER 2025-04-20 15:00 | Outpatient (CLI) | payer MEDICARE, SELFPAY ==
[2025-04-20 15:59] LABS: Hematocrit 41.5 % (37.0-47.0); Hemoglobin 13.2 g/dL (12.0-15.0); Mean Corpuscular HGB Conc 31.8 g/dl (32-36); Mean Corpuscular Hemoglobin 29.5 pg (26-34); Mean Corpuscular Volume 92.8 fl (80-100); Platelet Count Result 244 k/mm3 (150-375); Red Blood Count 4.47 M/mm3 (4.2-5.4); White Blood Count 6.0 K/mm3 (4.5-10.0)
[2025-04-20 16:08] LABS: Hemoglobin A1C 6.1 % (<5.7)
[2025-04-20 16:43] LABS: Alanine Aminotransferase 15 U/L (6-35); Albumin Level 4.3 g/dL (3.5-5.1); Alkaline Phosphatase 104 U/L (38-126); Anion Gap 7 mmol/L (4-12); Aspartate Amino Transferase 34 U/L (14-36); Bilirubin,Total 0.7 mg/dL (0.2-1.3); Blood Urea Nitrogen 26 mg/dL (7-17); Calcium 9.7 mg/dL (8.4-10.2); Carbon Dioxide 29 mmol/L (22-30); Chloride 102 mmol/L (98-107); Cholesterol 178 mg/dL (0-200); Estimated Glomerular Filt Rate > 60; Glucose 102 mg/dL (65-110); HDL Direct 55 mg/dL; Potassium 4.1 mmol/L (3.4-5.0); Sodium 138 mmol/L (137-145); Total Protein 7.4 g/dL (6.3-8.2); Triglycerides 179 mg/dL (<150)
[2025-04-20 17:18] LABS: Thyroid Stimulating Hormone 1.110 uIU/mL (0.465-4.680)
== END 2025-04-20 15:01 | disposition home or self-care (01) ==
PROVIDERS: PCP Family Medicine; Visit Provider Family Medicine
DX: E78.5 Hyperlipidemia, unspecified (principal); I10 Essential (primary) hypertension; R73.03 Prediabetes; Z79.899 Other long term (current) drug therapy
CPT/HCPCS: 36415; 80053; 80061; 83036; 84443; 85027